=== PATIENT | female | born 1940 | race Asian ===

== ENCOUNTER 2024-04-02 14:32 | Emergency (ER) | payer MEDICARE ==
[~2024-04-02] VITALS: Ht 152.4 cm; Wt 48.5 kg
[2024-04-02] MEDS ORDERED: ACETAMINOPHEN ES 500 MG TABLET ONE (15:00)
[2024-04-02] MEDS: ACETAMINOPHEN ES 500 MG TABLET PO ONE (15:05)
[2024-04-02 17:29] VITALS: BP 162/88; TEMP 98.1; O2SAT 98
== END 2024-04-02 17:30 | disposition home or self-care (01) ==
LOC: ER 14:34
DX: S42.251A Displaced fracture of greater tuberosity of right humerus, initial encounter for closed fracture (principal); R51.9 Headache, unspecified; I10 Essential (primary) hypertension; E11.9 Type 2 diabetes mellitus without complications; Z88.0 Allergy status to penicillin; Z91.040 Latex allergy status; Z88.8 Allergy status to other drugs, medicaments and biological substances; W01.0XXA Fall on same level from slipping, tripping and stumbling without subsequent striking against object, initial encounter; Y93.89 Activity, other specified; Y92.89 Other specified places as the place of occurrence of the external cause; Y99.8 Other external cause status
CPT/HCPCS: 70450-TC; 72125-TC; 73030-TC